=== PATIENT | male | born 1975 | race Caucasian/White ===

== ENCOUNTER 2017-10-20 09:50 | Emergency (ER) | payer BC | END 2017-10-20 11:06 | disposition home or self-care (01) | LOC: FTE 09:50 | DX: J01.00 Acute maxillary sinusitis, unspecified (principal); J30.9 Allergic rhinitis, unspecified | CPT/HCPCS: 99283 ==

== ENCOUNTER 2019-05-22 21:43 | Emergency (ER) | payer BC | END 2019-05-23 01:57 | disposition home or self-care (01) | LOC: FTE 21:43 | DX: F41.9 Anxiety disorder, unspecified (principal) | CPT/HCPCS: 71045; 80053; 82962; 84484; 85025; 93005; 99285-25 ==